=== PATIENT | female | born 2000 | race Two or more races ===

== ENCOUNTER 2024-08-16 12:50 | Inpatient (IN) | payer MEDICAID, SELFPAY ==
[2024-08-16] VITALS (22 sets, daily range): BP systolic 106–131; BP diastolic 55–84; PULSE 65–95; RESP 18; TEMP 36.6–37; O2SAT 94–98; BMI 27.8
[2024-08-16 13:28] LABS: ROM Kit Lot # 57805053; Swb Mxed in Solvent 1 min? Yes
[2024-08-16 13:29] LABS: ROM Swab Mixed By: MEDIA1; Rupture of Fetal Membranes Positive (Negative)
[2024-08-16 14:22] LABS: Basophils % (Auto) 0 % (0-2.5); Eosinophils % (Auto) 0 % (0-10); Hematocrit 35.7 % (36.0-46.0); Hemoglobin 12.3 g/dL (12.0-16.0); Immature Granulocytes % (Auto) 0 % (0-0); Immature Granulocytes Auto 0.05 Thou/mm3 (0.00-0.00); Lymphocytes # (Auto) 2.1 Thou/mm3 (1.0-4.8); Lymphocytes % (Auto) 17 % (10-50); Mean Corpuscular HGB Conc 34.5 g/dl (31.0-37.0); Mean Corpuscular Hemoglobin 27.9 pg (25.0-35.0); Mean Corpuscular Volume 81 fL (80-100); Monocytes # (Auto) 0.7 Thou/mm3 (0.0-0.8); Monocytes % (Auto) 6 % (0-12); Neutrophils % (Auto) 76 % (37-80); Nucleated Red Blood Cell % 0 /100 WBC (0); Platelet Count 150 Thou/mm3 (140-440); RDW Standard Deviation 49.1 fL (36.4-46.3); Red Blood Count 4.41 Miln/mm3 (4.00-5.20); White Blood Count 11.8 Thou/mm3 (3.6-11.0)
[2024-08-16] MEDS: OXYTOCIN in NS 30 units 30 UNIT/500 ML BAG IV (15:40)
[2024-08-16 15:43] LABS: Syphilis Nonreactive (Nonreactive)
--- NOTE | 2024-08-16 16:42 | ESHP_ITS ---
Documentation for date of: 08/16/24 OB Labor/Induct. HPI History of Present Illness Chief complaint: 24 y/o 39w 3d presents to L&D in labor at 3 cm : 2 Para: 1 Term pregnancies: 1 pregnancies: 0 Living children: 1 History of Abortions: Spontaneous and Elective: 0 History of Vaginal deliveries: 1 History of sections: No History of : No Date of last menstrual period: 11/14/23 JASKARAN: 08/20/24 Gestational Age (weeks): 39 Gestational Age (days): 3 Gestational age based on last menstrual period: 39 History of present illness: 24 y/o 39w 3d presents to L&D in labor at 3 cm/80/-3 vertex, SROM at 0800, GBS is neg. Pt has a hx of nvdx1. Pt was late to care at 18 weeks. No complications. EFW 3500g. Pt declined genetic screening. History of Present Dating criteria: LMP confirmed by 1st trimester US Adequate Care: Yes Ultrasounds: normal 1st trimester US and normal mid trimester US Obstetrical complications: none Medical complications: none Labs Maternal Blood Type: A Pos Labs: Positive: Rubella Titre, Negative: RPR, Hepatitis B, HIV, Chlamydia, Gonorrhea and Group Beta Strep and Unknown: Herpes Type 1, Herpes Type 2 and Covid-19 Review of Systems Review of Systems Systems Reviewed: All systems reviewed, normal except as documented Past Medical History Surgical History SURGICAL: Negative Section Meds Home Medications and Allergies Home Medications ?Medication ?Instructions ?Recorded ?Confirmed ?Type No Known Home Medications 11/16/21 08/16/24 History Allergies Allergy/AdvReac Type Severity Reaction Status Date / Time No Known Allergies Allergy Verified 08/16/24 13:32 OB Exam Physical Exam Vital signs: Temp Pulse Resp BP Pulse Ox 98.6 F 65 18 120/70 97 08/16/24 15:52 08/16/24 16:34 08/16/24 15:52 08/16/24 16:34 08/16/24 13:24 Constitutional Constitutional: no acute distress Routine HEENT Exam Head: Present normocephalic and atraumatic Eye: Present EOMI, PERRL and normal accommodation ENT: Present mucous membranes moist Routine Neck Exam Neck: Present supple, full ROM and trachea midline Routine Respiratory Exam Respiratory: Absent respiratory distress Routine Cardiovascular Exam Cardiovascular: Present RRR Routine Abdominal Exam Abdominal: Present soft Comments: Gravid uterus EFW 3500 g Routine Exam External: Present normal urethra appearance; Absent lesions Detailed Labor and Delivery Exam Dilation (cm): 3 Effacement (%): 50 Cervix position: posterior station: -3 Consistency: soft Presentation: Vertex Membranes: ruptured Amniotic fluid: clear Baseline heart rate: 130 monitor accelerations: 15x15 monitor decelerations: None predatory animal exterminator variability: Moderate (11-25) Contraction frequency (min): 5-6 Contraction duration (sec): 40-60 Tachysystole: No Contraction intensity: Moderate Routine Extremities Exam Extremities: Present full ROM Routine Back/Spine/Pelvis Exam Back/Spine: Present full ROM Routine Skin Exam Skin: Present intact, dry and warm Routine Neurological Exam Neurological: Present alert, oriented X3 and CN II-XII intact Routine Psychiatric Exam Psychiatric: Present normal affect and normal thought process OB Results Labs 08/16/24 13:16 Labs: Short CBC 08/16/24 Range/Units 13:16 WBC 11.8 H (3.6-11.0) Thou/mm3 Hgb 12.3 (12.0-16.0) g/dL Hct 35.7 L (36.0-46.0) % Plt Count 150 (140-440) Thou/mm3 OB Assessment & Plan Assessment and Plan (1) Normal labor: Status: Acute (2) with 39 completed weeks gestation: Status: Acute Additional Plan Induction method: none Plan: augmentation, anticipate NVD and consult MD mares Additional Plan Comment: Routine admit orders Augment with pitoin per protocol Continuous EFM Consult anesthesia for an epidural
[2024-08-16] MEDS: LIDOCAINE HCL 1% 20 ML VIAL INFL (19:20)
[2024-08-16] MEDS: OXYTOCIN in NS 20 units 20 UNIT/1,000 ML BAG 125 UNIT IV (19:20)
--- NOTE | 2024-08-16 19:40 | OBDSUM_ITS ---
Data ([facility]) Data Hx Section: No Maternal Blood Type: A Pos Rubella Titre: Positive RPR: Non-reactive Labs: Negative: RPR, Hepatitis B, HIV, Chlamydia, Gonorrhea and Group Beta Strep and Unknown: Herpes Type 1 and Herpes Type 2 : 2 Para: 1 Term: 1 : 0 Livin : 0 Delivery Data (Alves) Labor Data Stimulated/Augmented: Yes Induction: No Method: Oxytocin ROM Date: 08/16/24 ROM Time: 08:00 Rupture Type: SROM Amniotic Fluid: Clear Delivery Data EDC: 08/20/24 EDC calculated by:: LMP/early US confirmation Labor Onset Stage 1 Date: 08/16/24 Labor Onset Stage 1 Time: 08:00 Labor Onset Stage 2 Date: 08/16/24 Labor Onset Stage 2 Time: 19:05 Delivery Date: 08/16/24 Delivery Time: 19:10 Gestational age (weeks): 39 Gestational age (days): 3 Placenta Delivery Date: 08/16/24 Placenta Delivery Time: 19:19 Delivered by: Melania Todd Delivery nurse: Felix Londono Rent And Housing Investigator at delivery: No Support person(s) at delivery: FOB Other staff at delivery: Nursery Nurse Other staff at delivery: Babita Cardona Delivery Method Delivery: Vaginal Delivery Type: Spontaneous Presentation: Vertex Position: OA Anesthesia Type Primary Anesthesia: Local Delivery Room Medications Other Intrapartum Medications: No Post Delivery Medications N/A: No Placenta Placenta Delivery: Spontaneous Placenta Cultures Obtained: No Placenta Sent for Examination: No Cord Sample: Cord Blood Obtained Episiotomy Episiotomy: None Lacerations #1: Labial: intriotus tear Perineal repair Sutures used for repair: 4.0 Vicryl (SH) EBL Estimated blood loss (ml): 200 Umbilical Cord Umbilical Vessels: 3 Nuchal Cord: Not Applicable Body Cord: Not Applicable Additional Procedures Patient had a precipitous vaginal delivery on the bed with RN. CNM came in and infant was the mother's abdomen. Vigorous cry. Umbilical cord was cut by RN. Cord blood obtained. Three-vessel cord noted. Placenta expelled spontaneously and intact. Patient sustained a small laceration in the intriotus, repaired using a 4-0 Vicryl on an SH suture. Perineum intact. Excellent hemostasis achieved after vigorous fundal massage and removal of clots from the posterior fornix. EBL 200. Sponge and needle count correct. Mother and baby stable, skin to skin and bonding in LDR. [place] Data ([facility]ves) [place] Data Gender: Female Weight Grams: 3580 1 Minute Total: 9 5 Minute Total: 9
[2024-08-16] MEDS: TRANEXAMIC ACID 1,000 MG IVPB 1,000 MG/100 ML BAG 200 MG IV (19:55)
[2024-08-16] MEDS: IBUPROFEN TAB 400 MG TABLET 800 MG PO (19:59)
[2024-08-16 20:59] LABS: Basophils # (Auto) 0.1 Thou/mm3 (0.0-0.2); Basophils % (Auto) 0 % (0-2.5); Eosinophils % (Auto) 0 % (0-10); Hemoglobin 10.9 g/dL (12.0-16.0); Immature Granulocytes % (Auto) 1 % (0-0); Immature Granulocytes Auto 0.13 Thou/mm3 (0.00-0.00); Lymphocytes # (Auto) 1.7 Thou/mm3 (1.0-4.8); Lymphocytes % (Auto) 8 % (10-50); Mean Corpuscular HGB Conc 34.1 g/dl (31.0-37.0); Mean Corpuscular Volume 82 fL (80-100); Monocytes # (Auto) 1.1 Thou/mm3 (0.0-0.8); Monocytes % (Auto) 5 % (0-12); Neutrophils # (Auto) 18.8 Thou/mm3 (1.8-7.7); Neutrophils % (Auto) 87 % (37-80); Nucleated Red Blood Cell % 0 /100 WBC (0); Platelet Count 132 Thou/mm3 (140-440); RDW Standard Deviation 50.3 fL (36.4-46.3); Red Blood Count 3.89 Miln/mm3 (4.00-5.20)
[2024-08-16 21:12] LABS: White Blood Count 21.7 Thou/mm3 (3.6-11.0)
[2024-08-17 00:11] VITALS: BP 116/80; PULSE 76; RESP 18; TEMP 37.1; O2SAT 99
[2024-08-17 02:19] LABS: Basophils % (Auto) 0 % (0-2.5); Eosinophils % (Auto) 0 % (0-10); Hematocrit 27.4 % (36.0-46.0); Hemoglobin 9.4 g/dL (12.0-16.0); Immature Granulocytes % (Auto) 0 % (0-0); Immature Granulocytes Auto 0.07 Thou/mm3 (0.00-0.00); Lymphocytes # (Auto) 1.7 Thou/mm3 (1.0-4.8); Lymphocytes % (Auto) 10 % (10-50); Mean Corpuscular HGB Conc 34.3 g/dl (31.0-37.0); Mean Corpuscular Hemoglobin 28.2 pg (25.0-35.0); Mean Corpuscular Volume 82 fL (80-100); Monocytes # (Auto) 1.2 Thou/mm3 (0.0-0.8); Monocytes % (Auto) 7 % (0-12); Neutrophils # (Auto) 14.8 Thou/mm3 (1.8-7.7); Neutrophils % (Auto) 83 % (37-80); Nucleated Red Blood Cell % 0 /100 WBC (0); Platelet Count 127 Thou/mm3 (140-440); RDW Standard Deviation 49.2 fL (36.4-46.3); Red Blood Count 3.33 Miln/mm3 (4.00-5.20); White Blood Count 17.8 Thou/mm3 (3.6-11.0)
[2024-08-17 04:20] VITALS: BP 92/52; PULSE 74; RESP 18; TEMP 36.9; O2SAT 97
--- NOTE | 2024-08-17 06:58 | ESDS_ITS ---
DS: Providers Provider Date of admission: 08/16/24 13:12 Primary care physician: Physician No Primary/Family Admitting Provider: Melania Todd CNM Attending Provider on Admission: Nikko Mccabe MD Attending Provider on DC: Melania Todd CNM Discharging Provider: Melania Todd CNM Anticipated date of discharge: 08/17/24 DS: Diagnosis Discharge Diagnosis (1) Normal spontaneous vaginal delivery: Status: Acute (2) Encounter for care of lactating mother: Status: Acute (3) with 39 completed weeks gestation: Status: Acute (4) Normal labor: Status: Acute Problem List Completed Was Problem List Reviewed/Reconciled?: Yes Summary/Hosp Course Brief History: 24 y/o 39w 3d presents to L&D in labor at 3 cm/80/-3 vertex, SROM at 0800, GBS is neg. Pt has a hx of nvdx1. Pt was late to care at 18 weeks. No complications. EFW 3500g. Pt declined genetic screening. 08/16/24: Patient had a precipitous vaginal delivery on the bed with RN. CNM came in and infant was the mother's abdomen. Vigorous cry. Umbilical cord was cut by RN. Cord blood obtained. Three-vessel cord noted. Placenta expelled spontaneously and intact. Patient sustained a small laceration in the intriotus, repaired using a 4-0 Vicryl on an SH suture. Perineum intact. Excellent hemostasis achieved after vigorous fundal massage and removal of clots from the posterior fornix. EBL 200. Sponge and needle count correct. Mother and baby stable, skin to skin and bonding in LDR. By 08/17/24: day 1 patient is stable and afebrile. Doing well and . Breast-feeding infant. No complaints. Uterus is nontender fundus firm minimal lochia. Discharge instructions given. Patient to follow-up with Melania Todd CNM in 3 weeks Peripartum Data Delivery Method: Normal Vaginal Delivery Episiotomy Description: None Laceration Description: yes and see Delivery Summary complications: none 1: Gender: Female Disposition of : home Status at Discharge Cognitive/behavioral status at discharge: Alert and oriented x 3 Functional status at discharge: independent ambulation Overall status at discharge: patient is progressing back to baseline Time Spent with Patient Time attestation: Total time spent providing and/or coordinating discharge services: Time spent: Greater than 30 minutes Exam Vital Signs Temp Pulse Resp BP Pulse Ox 97.9 F 71 18 119/76 97 08/16/24 16:44 08/16/24 19:27 08/16/24 15:52 08/16/24 19:27 08/16/24 13:24 Constitutional Constitutional: no acute distress Routine HEENT Exam Head: Present normocephalic and atraumatic Eye: Present EOMI, PERRL and normal accommodation ENT: Present mucous membranes moist Routine Neck Exam Neck: Present supple, full ROM and trachea midline Routine Respiratory Exam Respiratory: Present chest non-tender, lungs clear, normal breath sounds and no resp distress Routine Cardiovascular Exam Cardiovascular: Present RRR Routine Abdominal Exam Abdominal: Present soft and normoactive bowel sounds; Absent tenderness or distended Comments: Uterus nontender Fundus firm Routine Exam Patient deferred: external exam Routine Extremities Exam Extremities: Present full ROM, pulses intact and normal capillary refill; Absent calf tenderness or tenderness Routine Back/Spine/Pelvis Exam Back/Spine: Present full ROM Routine Skin Exam Skin: Present intact, dry and warm Routine Neurological Exam Neurological: Present alert, oriented X3 and CN II-XII intact Routine Psychiatric Exam Psychiatric: Present normal affect and normal thought process Discharge Plan Plan Patient Disposition: HOME (Self Care) Patient condition on transfer: Stable Prescriptions/Referrals Prescriptions/Med Rec: New ibuprofen 800 mg tablet 800 mg PO Q6H MDD 4 PRN (Reason: pain) Qty: 120 0RF lanolin 50 % ointment 1 applic topical TID PRN (Reason: skin irritation) Qty: 15 0RF docusate sodium [Colace] 100 mg capsule 100 mg PO BID Qty: 60 0RF Referrals: No Primary/Family,Physician [Primary Care Provider] - Patient/Caregiver Discharge Instructions Meds to Beds: No Discharge Activity: activity as tolerated Other Discharge Activity Instructions:: Follow-up with Melania Todd CNM in 3 weeks Education Materials: After a Vaginal , After Delivery Concerns, : Caring for Yourself Print Language: Armenian Stand Alone Forms: Shira Award Info., Patient Portal Info Letter Discharge Order Discharge Orders: Discharge (Routine); Ordered 08/17/24 Ordered By: Melania Todd Planned Discharge Date 08/17/24
[2024-08-17 07:30] VITALS: BP 115/72; PULSE 80; RESP 16; TEMP 36.8; O2SAT 97
[2024-08-17] MEDS: DOCUSATE SOD 100 MG CAPSULE PO (08:42)
[2024-08-17] MEDS: IBUPROFEN TAB 400 MG TABLET 800 MG PO ×2 (08:43→17:21)
--- NOTE | 2024-08-17 13:10 | CHAP ---
09:30 AM Visited by spiritual care volunteer Provided prayer for Patient.
[2024-08-17 17:21] VITALS: TEMP 36.9
[2024-08-17 17:23] VITALS: BP 111/72; PULSE 91; RESP 16; TEMP 36.8; O2SAT 97
[2024-08-17 19:45] VITALS: BP 113/73; PULSE 84; RESP 16; TEMP 37; O2SAT 97
== END 2024-08-17 22:05 | disposition home or self-care (01) | DRG 560 ==
LOC: S4SX 19:54 → S4NX 22:27
PROVIDERS: Admitting Provider Nurse Practitioner Women's Health; Visit Provider Obstetrics & Gynecology
DX: O42.02 Full-term premature rupture of membranes, onset of labor within 24 hours of rupture (principal); O62.3 Precipitate labor; Z37.0 Single live birth; Z3A.39 39 weeks gestation of pregnancy; O71.4 Obstetric high vaginal laceration alone
CPT/HCPCS: 36415; 59409; 84112; 85025; 86780; 86850; 86900; 86901; J2590; J3490; A9270